=== PATIENT | male | born 1955 ===

== ENCOUNTER 2021-02-07 13:45 | Outpatient (CLI) | payer MEDICARE, SELFPAY | END 2021-02-07 13:46 | disposition home or self-care (01) | LOC: ANHCOVIDVC 13:45 | PROVIDERS: PCP Family Medicine | DX: Z23 Encounter for immunization (principal) | CPT/HCPCS: 0001A; 91300 ==

== ENCOUNTER 2021-02-28 13:39 | Outpatient (CLI) | payer MEDICARE, SELFPAY | END 2021-02-28 13:40 | disposition home or self-care (01) | LOC: ANHCOVIDVC 13:39 | PROVIDERS: PCP Family Medicine | DX: Z23 Encounter for immunization (principal) | CPT/HCPCS: 0002A; 91300 ==